=== PATIENT | female | born 1990 | race Hispanic/Latino ===

== ENCOUNTER 2017-02-04 08:40 | Inpatient (IN) | payer MEDICAID ==
[2017-02-04] MEDS ORDERED: MINERAL OIL PO PRN (10:57)
[2017-02-04] MEDS ORDERED: BRETHINE SUB-Q PRN (10:57)
[2017-02-04] MEDS ORDERED: XYLOCAINE 2% INFILTRATI ONE (10:57)
[2017-02-04] MEDS ORDERED: BRETHINE IVP PRN (10:57)
[2017-02-04] MEDS ORDERED: ePHEDrine SULFATE IV PRN ×2 (10:57→14:00)
[2017-02-04] MEDS ORDERED: LACTATED RINGERS 1,000 ML ONE (11:00)
[2017-02-04] MEDS ORDERED: PITOCin/NS 20 UNIT/1000ML DRIP 20 UNITS/1,000 ML BAG IV SCH (11:00)
[2017-02-04] MEDS ORDERED: SUBLIMAZE IV PRN (11:03)
--- NOTE | 2017-02-04 11:13 | History and Physical Report ---
History of Present Illness Date of examination: 02/04/17 Date of admission: 02/04/17 10:49 Chief complaint: I'm in labor History of present illness: Patient is a 26 year old who presents at 38.1 weeks in active labor with active cervical change. Her EDc is 02/17/2017. Patient has had regular care. She is GBS negative. Past History Past Medical History: asthma Past Surgical History: cholecystectomy, [employer]UD[employer]/uterine surgery (salpingectomy) [employer]ER History: trichomonas Social history: single - Obstetrical History Expected Date of Delivery: 02/17/17 Actual Gestation: 38 Week(s) 1 Day(s) : 9 Para: 4 Medications and Allergies Allergies Allergy/AdvReac Type Severity Reaction Status Date / Time No Known Allergies Allergy Verified 12/05/13 09:07 Home Medications Medication Instructions Recorded Confirmed Last Taken Type No Known Home Medications [No 02/04/17 02/04/17 Unknown History Reported Home Medications] Active Meds: Active Medications Ephedrine Sulfate (Ephedrine Sulfate) 10 mg IV Q2M PRN PRN Reason: Hypotension Stop: 02/04/17 11:02 Fentanyl (Sublimaze) 100 mcg IV Q2H PRN PRN Reason: Labor Pain Lactated Ringer's (Lactated Ringers) 1,000 mls @ 125 mls/hr IV DIRECT HARRY Oxytocin/Sodium Chloride (Pitocin/Ns 20 Unit/1000ml Drip) 20 units in 1,000 mls @ 125 mls/hr IV DIRECT HARRY Oxytocin/Sodium Chloride (Pitocin/Ns 30 Unit/500ml) 30 units in 500 mls @ 1 mls /hr IV TITR HARRY; 1 MILLIUNITS/MIN PRN Reason: Protocol Lidocaine (Xylocaine 2%) 20 ml INFILTRATI ONCE ONE Stop: 02/04/17 10:58 Mineral Oil (Mineral Oil) 30 ml PO QHS PRN PRN Reason: Constipation Terbutaline Sulfate (Brethine) 0.25 mg SUB-Q ONCE PRN PRN Reason: Hyperstimulation/Hypertonicity Stop: 02/04/17 10:58 Terbutaline Sulfate (Brethine) 0.25 mg IVP ONCE PRN PRN Reason: Hyperstimulation/Hypertonicity Stop: 02/04/17 10:58 Review of Systems All systems: negative Genitourinary: contractions - Vital Signs Vital signs: Vital Signs Pulse BP 91 H 122/80 02/04/17 08:47 02/04/17 08:47 Temp Pulse Resp BP Pulse Ox 97.7 F 82 16 122/80 99 02/04/17 08:59 02/04/17 09:23 02/04/17 08:59 02/04/17 08:59 02/04/17 09:23 - Physical Exam Breasts: Cardiovascular: Regular rate, Normal S1, Normal S2 Lungs: Positive: Clear to auscultation, Normal air movement Abdomen: Positive: normal appearance, soft, normal bowel sounds. Negative: distention, tenderness Vulva: both: normal Vagina: Positive: normal moisture. Negative: discharge Cervix: Negative: lesion, discharge Uterus: Positive: normal size, normal contour Adnexa: both: normal Anus/Rectum: Positive: normal perianal skin, heme negative. Negative: rectal mass, hemorrhoids Extremities: Deep Tendon Reflex Grade: Normal +2 - Obstetrical FHR: auscultation normal Cervical Dilatation: 4 Cervical Effacement Percentage: 80 Uterine Contraction Pattern: Regular Uterine Contraction Intensity: Moderate Results Result Diagrams: 02/04/17 11:25 All other labs normal. Assessment and Plan IUP at 38.1 weeks in active labor. Admit for management. patient may have epidural. AROM when able. Anticipate .
[2017-02-04 11:42] LABS: Hemoglobin 9.6 gm/dl (10.1-14.3); Mean Corpuscular HGB Conc 34 % (30-34); Mean Corpuscular Hemoglobin 30 pg (28-32); Mean Corpuscular Volume 87 fl (79-97); Platelet Count 170 K/mm3 (140-440); Red Cell Distribution Width 13.9 % (13.2-15.2); White Blood Count 6.4 K/mm3 (4.5-11.0)
[2017-02-04] MEDS: LACTATED RINGERS 1,000 ML IV SCH ×2 (12:27→13:39)
[2017-02-04] MEDS ORDERED: ePHEDrine SULFATE ONE (13:02)
[2017-02-04] MEDS ORDERED: fentaNYL-BUPIV 2 MCG/ML-0.125% 200 MCG/100 ML BAG EPIDURAL ONE (13:38)
--- NOTE | 2017-02-04 13:45 | Anesthesia Consultation ---
Anesthesia Consult and Med Hx Date of service: 02/04/17 - Airway Anesthetic Teeth Evaluation: Good ROM Head & Neck: Adequate Mental/Hyoid Distance: Adequate Mallampati Class: Class II Intubation Access Assessment: Probably Good - Pre-Operative Health Status ASA Pre-Surgery Classification: ASA2 Proposed Anesthetic Plan: Epidural, Spinal - Pulmonary Hx Smoking: Yes Hx Asthma: No COPD: No Hx Pneumonia: No - Cardiovascular System Hx Hypertension: No - Central Nervous System Hx Seizures: No Hx Psychiatric Problems: Yes (bipolar) - Endocrine Hx Renal Disease: Yes (possible Kidney stones) Hx End Stage Renal Disease: No Hx Hypothyroidism: No Hx Hyperthyroidism: No - Hematic Hx Anemia: No Hx Sickle Cell Disease: No - Other Systems Hx Alcohol Use: No
[2017-02-04] MEDS ORDERED: NARCAN 2 MG/2 ML IV PRN (14:00)
[2017-02-04] MEDS ORDERED: fentaNYL-BUPIV 2 MCG/ML-0.125% 200 MCG/100 ML BAG EPIDURAL SCH (14:00)
[2017-02-04] MEDS: PITOCin/NS 30 UNIT/500ML 30 UNITS/500 ML BAG IV SCH ×2 (14:13→14:47)
[2017-02-04] MEDS ORDERED: XYLOCAINE MPF 2% ONE (16:45)
--- NOTE | 2017-02-04 17:29 | Procedure Note ---
OB Delivery Note - Delivery Date of Delivery: 02/04/17 Surgeon: NELSY MINA Estimated blood loss: 200cc - Vaginal Delivery presentation: vertex Delivery position: OA Delivery augmentation: rupture of membranes Delivery monitor: external FHT, external uterine Route of delivery: Delivery placenta: spontaneous Delivery cord: 3 umbilical vessels Episiotomy: none Delivery laceration: none Anesthesia: epidural Delivery comments: Viable male delivered over intact perineum with Apgars 8,9. Infant placed on maternal abdomen for skin to skin. Weight 6 pounds 12 ounces. Cord clamped and cut when finished pulsating. Placenta delivered spontaneously and intact with 3vc. Patient tolerated procedure well. No lacerations. Patient tolerated procedure well. - A at 1 minute: 8 at 5 minutes: 9 Gender: Male (6 ounds 12 iounces)
[2017-02-04] MEDS ORDERED: LANSINOH TP PRN (18:55)
[2017-02-04] MEDS ORDERED: TYLENOL PO PRN (18:55)
[2017-02-04] MEDS ORDERED: TUCKS PAD TP PRN (18:55)
[2017-02-04] MEDS ORDERED: SODIUM CHLORIDE FLUSH SYRINGE 10 ML IV NR (18:55)
[2017-02-04] MEDS ORDERED: BENADRYL PO PRN (18:55)
[2017-02-04] MEDS ORDERED: PHENERGAN PO PRN (18:55)
[2017-02-04] MEDS ORDERED: PHENERGAN PR PRN (18:55)
[2017-02-04] MEDS ORDERED: ZOFRAN IV PRN (18:55)
[2017-02-04] MEDS ORDERED: DERMOPLAST TP PRN (18:55)
[2017-02-04] MEDS ORDERED: DULCOLAX PR PRN (18:55)
[2017-02-04] MEDS ORDERED: MILK OF MAGNESIA PO PRN (18:55)
[2017-02-04] MEDS: COLACE PO SCH (22:07)
[2017-02-04] MEDS: MOTRIN PO SCH (22:49)
[2017-02-05] MEDS: NORCO 5/325 PO PRN ×4 (01:04→20:37)
[2017-02-05] MEDS: MOTRIN PO SCH ×4 (06:03→18:27)
[2017-02-05 06:19] LABS: Hematocrit 29.3 % (30.3-42.9); Hemoglobin 9.9 gm/dl (10.1-14.3)
[2017-02-05] MEDS ORDERED: PRENATAL VITAMIN PO SCH (10:00)
--- NOTE | 2017-02-05 12:35 | Progress Note ---
Subjective Date of service: 02/05/17 Interval history: 1st day after normal vaginal delivery Patient is in the bed, comfortable. Pain is well controlled with pain meds. Ambulated well. No residual neurological deficit. No anesthesia complications Objective - Constitutional Vitals: Vital Signs - 12hr 02/05/17 02/05/17 02/05/17 01:05 05:00 08:35 Temperature 97.5 F L 99.1 F 97.9 F Pulse Rate [ 76 72 71 Right Radial] Respiratory 20 18 20 Rate Blood Pressure 147/83 140/97 123/90 [Right Arm] 02/05/17 02/05/17 11:53 11:54 Temperature Pulse Rate [ Right Radial] Respiratory 18 18 Rate Blood Pressure [Right Arm] - Labs CBC & Chem 7: 02/05/17 05:39 Labs: Abnormal lab results 02/05/17 Range/Units 05:39 Hgb 9.9 L (10.1-14.3) gm/dl Hct 29.3 L (30.3-42.9) %
--- NOTE | 2017-02-05 18:54 | Progress Note ---
Assessment and Plan PPD 1 s/p . Doing well. Patient planning to be discharged on tomorrow morning. Subjective - Subjective Date of service: 02/05/17 Interval history: Patient is a 26 year old who presents at 38.1 weeks in active labor with active cervical change. Her EDc is 02/17/2017. Patient has had regular care. She is GBS negative. Patient reports: appetite normal, voiding normally, pain well controlled, ambulating normally [place]: doing well Objective - Vital Signs Latest vital signs: Vital Signs Temp Pulse Resp BP 02/05/17 18:23 98.2 F 77 20 118/78 02/05/17 11:54 18 02/05/17 11:53 18 02/05/17 08:35 97.9 F 71 20 123/90 02/05/17 05:00 99.1 F 72 18 140/97 02/05/17 01:05 97.5 F L 76 20 147/83 Intake and Output 02/05/17 02/05/17 02/05/17 06:59 14:59 22:59 Intake Total 240 960 240 Output Total 1000 1 Balance 240 -40 239 Intake: Oral 960 240 Intake, Free Water 240 Output: Urine 1000 1 Void 1000 1 Other: Total, Intake Amount 360 240 Total, Output Amount 600 1 # Voids Void 2 1 - Exam Cardiovascular: Present: Regular rate, Normal S1, Normal S2 Lungs: Present: Clear to auscultation, Normal air movement Abdomen: Present: normal appearance, soft, normal bowel sounds Vulva: both: normal Uterus: Present: normal, firm, fundal height below umbilicus Extremities: Present: normal Deep Tendon Reflex Grade: Normal +2 - Labs Labs: Abnormal lab results 02/05/17 Range/Units 05:39 Hgb 9.9 L (10.1-14.3) gm/dl Hct 29.3 L (30.3-42.9) %
--- NOTE | 2017-02-05 18:57 | Discharge Summary ---
Providers - Providers Date of Admission: 02/04/17 10:49 Date of discharge: 02/06/17 Attending physician: NELSY MINA Primary care physician: NELSY MINA Hospitalization Reason for admission: active labor Delivery: Laceration: none Discharge diagnosis: IUP at term delivered [place] baby: male Hospital course: unremarkable Condition at discharge: Good Disposition: DISCHARGED TO HOME OR SELFCARE Plan - Discharge Medications Prescriptions: Ibuprofen [Motrin 600 MG tab] 600 mg PO Q6H #30 tablet Vit-Fe Fumar-FA [ Vitamin] 1 each PO QDAY #30 tablet - Provider Discharge Summary Activity: routine, no sex for 6 weeks, no heavy lifting 4 weeks, no strenuous exercise Diet: routine Instructions: routine Additional instructions: [] Smoking cessation referral if applicable(refer to patient education folder for contact #) [] Refer to [facility] Booklet Call your doctor immediately for: * Fever > 100.5 * Heavy vaginal bleeding ( >1 pad per hour) * Severe persistent headache * Shortness of breath * Reddened, hot, painful area to leg or breast * Drainage or odor from incision. * Keep incision clean and dry at all times and follow doctor's instructions regarding bathing/showering - Follow up plan Follow up: NELSY MINA MD [Primary Care Provider] - 7 Days
[2017-02-05] MEDS: COLACE PO SCH (21:07)
[2017-02-06] MEDS: MOTRIN PO SCH ×2 (02:13→06:02)
[2017-02-06] MEDS: NORCO 5/325 PO PRN (06:01)
[2017-02-06 10:01] VITALS: BP 124/84
[2017-02-06] MEDS: COLACE PO SCH (10:36)
== END 2017-02-06 10:30 | disposition home or self-care (01) | DRG 775 ==
LOC: TRG 08:40 → LD 10:49 → OB 18:37
PROVIDERS: ADMIT Obstetrics & Gynecology; ATTEND Obstetrics & Gynecology
PROC: 10907ZC Drainage of Amniotic Fluid, Therapeutic from Products of Conception, Via Natural or Artificial Opening (ICD-10-PCS; principal; 2017-02-04)
PROC: 10E0XZZ Delivery of Products of Conception, External Approach (ICD-10-PCS; principal; 2017-02-04)
PROC: 3E0S3CZ (ICD-10-PCS; principal; 2017-02-04)
PROC: 00HU33Z Insertion of Infusion Device into Spinal Canal, Percutaneous Approach (ICD-10-PCS; principal; 2017-02-04)
DX: O99.52 Diseases of the respiratory system complicating childbirth (principal); J45.909 Unspecified asthma, uncomplicated; Z3A.38 38 weeks gestation of pregnancy; Z37.0 Single live birth; Z90.49 Acquired absence of other specified parts of digestive tract; O99.340 Other mental disorders complicating pregnancy, unspecified trimester; F31.9 Bipolar disorder, unspecified
CPT/HCPCS: 36415; 85014; 85018; 85027; 86850; 86900; 86901; J2590; J3010; J7120

== ENCOUNTER 2017-03-13 09:29 | Day surgery (SDC) | payer MEDICAID ==
[~2017-03-13 09:29] MED LIST: DIPRIVAN 10 MG/ML IV ONE; MARCAINE 0.25% INFILTRATI ONE; NACL 0.9% 1000 ML 1,000 ML IV SCH; NACL 0.9% IR ONE; PEPCID IV NR; VERSED IV NR; ZOFRAN IV PRN
--- NOTE | 2017-03-13 09:58 | Short Stay Summary ---
Short Stay Documentation Date of service: 03/13/17 Narrative H&P: Patient is a 26 year old who presents for elective sterilization. She is 6 weeks post spontaneous vag delivery. She has no significant medical problems - History H&P: obtained from office Past Medical History: No medical history Past Surgical History: No surgical history Social history: single - Allergies and Medications Current Medications: Allergies No Known Allergies Allergy (Verified 03/06/17 13:05) Home Medications Medication Instructions Recorded Confirmed Last Taken Type Ibuprofen [Motrin 600 MG tab] 600 mg PO Q6H #30 tablet 02/05/17 03/06/17 Unknown Rx Vit-Fe Fumar-FA [ 1 each PO QDAY #30 tablet 02/05/17 03/06/17 Unknown Rx Vitamin] Active Medications Famotidine (Pepcid) 20 mg IV PREOP NR Hydromorphone HCl (Dilaudid) 0.5 mg IV Q10MIN PRN PRN Reason: Pain , Severe (7-10) Stop: 03/16/17 07:36 Sodium Chloride (Nacl 0.9% 1000 Ml) 1,000 mls @ 75 mls/hr IV DIRECT HARRY Midazolam HCl (Versed) 2 mg IV PREOP NR Stop: 03/13/17 23:59 Ondansetron HCl (Zofran) 4 mg IV ONCE PRN PRN Reason: Nausea And Vomiting Stop: 03/13/17 07:36 - Physical exam General appearance: no acute distress Integumentary: no rash Lungs: Clear to auscultation, Normal air movement Heart: Regular rate, Normal S1, Normal S2 Gastrointestinal: normal Female Genitourinary: normal Extremities: No edema - Brief post op/procedure progress note Date of procedure: 03/13/17 Pre-op diagnosis: Elective sterilization Post-op diagnosis: same Procedure: Laparoscopic unilateral (right) salpingectomy Anesthesia: GETA Findings: normal uterus, partially removed left fallopian tube Surgeon: NELSY MINA Estimated blood loss: minimal Pathology: list (right tube) Specimen disposition: to lab Condition: stable - Hospital course Hospital course: unremarkable - Disposition Condition at discharge: Good Disposition: DC-01 TO HOME OR SELFCARE Short Stay Discharge Plan Activity: advance as tolerated Weight Bearing Status: Weight Bear as Tolerated Diet: regular Wound: open to air Follow up with: NELSY MINA MD [Primary Care Provider] - 14 Days Prescriptions: HYDROcodone/APAP 5-325 [[place] 5/325] 1 each PO Q6HR PRN #20 tablet PRN Reason: Pain Ibuprofen [Motrin] 800 mg PO Q8HR PRN #40 tablet PRN Reason: Pain
[2017-03-13] MEDS ORDERED: ANCEF/STERILE WATER 2 GM/20 ML 2 GM/20 ML SYRINGE IV NR (10:00)
--- NOTE | 2017-03-13 10:01 | Anesthesia Day of Surgery ---
Anesthesia Day of Surgery - Day of Surgery Patient Examined: Yes Patient H&P Reviewed: Yes Patient is NPO: Yes
--- NOTE | 2017-03-13 10:01 | Anesthesia Consultation ---
Anesthesia Consult and Med Hx Date of service: 03/13/17 - Airway Anesthetic Teeth Evaluation: Good ROM Head & Neck: Adequate Mental/Hyoid Distance: Adequate Mallampati Class: Class I Intubation Access Assessment: Good - Pulmonary Exam CTA: Yes - Cardiac Exam Cardiac Exam: RRR - Pre-Operative Health Status ASA Pre-Surgery Classification: ASA2 Proposed Anesthetic Plan: General - Pulmonary Hx Smoking: Yes (former, stopped on 2015) Hx Asthma: No COPD: No Hx Pneumonia: No - Cardiovascular System Hx Hypertension: No - Central Nervous System Hx Seizures: No Hx Psychiatric Problems: Yes (bipolar) - Endocrine Hx Renal Disease: Yes (possible Kidney stones) Hx End Stage Renal Disease: No Hx Hypothyroidism: No Hx Hyperthyroidism: No - Hematic Hx Anemia: No Hx Sickle Cell Disease: No - Other Systems Hx Alcohol Use: Yes (occas) Hx Cancer: No - Additional Comments Anesthesia Medical History Comments: No problem with previous anesthesias.
[2017-03-13] MEDS ORDERED: ZEMURON IV ONE (10:59)
[2017-03-13] MEDS ORDERED: XYLOCAINE MPF 2% ONE (10:59)
[2017-03-13] MEDS ORDERED: DECADRON ONE (11:00)
[2017-03-13] MEDS ORDERED: ZOFRAN ONE (11:09)
[2017-03-13] MEDS ORDERED: TORADOL ONE (11:09)
[2017-03-13] MEDS ORDERED: ROBINUL ONE ×2 (11:37)
[2017-03-13] MEDS ORDERED: NEOSTIGMINE ONE (11:37)
[2017-03-13] MEDS: DILAUDID IV PRN ×2 (12:20→12:41)
--- NOTE | 2017-03-13 12:35 | Post Anesthesia Evaluation ---
- Post Anesthesia Evaluation Patient Participated: Yes Airway Patent: Yes Stable Respiratory Function: Yes Nausea/Vomiting: No Temp > 96.8F: Yes Pain Manageable: Yes Adequeate Hydration: Yes Anesthesia Complications: No Block Receding Appropriately: Not Applicable Patient on Ventilator: No
[2017-03-13 13:38] VITALS: BP 113/79
--- NOTE | 2017-03-13 18:08 | Operative Report ---
PREOPERATIVE DIAGNOSIS: Undesired fertility. POSTOPERATIVE DIAGNOSES: Undesired fertility, perineal adhesions. PROCEDURES: Unilateral salpingectomy with bilateral tubal ligation, lysis of adhesions. SURGEON: Lisa Carter MD. ANESTHESIA: General. ESTIMATED BLOOD LOSS: Minimal. COMPLICATIONS: None. SPECIMENS: Right fallopian tube. URINE OUTPUT: 100 mL clear at the beginning of the procedure. IV FLUIDS: 800 mL. PROCEDURE: The patient was taken to the OR with IV running in place. She was identified as herself. She was given general anesthesia without difficulty. She was then placed in dorsal lithotomy position and prepped and draped in normal sterile fashion. Attention was turned to the patient's vagina. The bladder was drained 100 mL of clear yellow urine. The speculum was placed in the vagina to visualize the cervix. An acorn cannula was then placed along the speculum was removed. Surgeon's gloves were changed and attention was turned to the patient's abdomen. A 5 mm incision was made in the umbilicus. Through this incision, a 5-mm trocar was placed. The trocar was placed through this incision and the laparoscope confirmed intra-abdominal placement. The abdomen was insufflated with CO2 gas up to approximately 15 mmHg. Initial survey of the abdomen revealed omental adhesions to the anterior abdominal wall and there were just a mass in the midline. Otherwise, normal uterus and tubes otherwise appeared normal. The tube on the right appeared to be completely normal. The tube on the left appeared to have been occluded at some point, but there was a portion of tube that appeared to be remaining. Under direct visualization, a second incision was made in the left lower quadrant. Under direct visualization, a second trocar was placed through this incision. The port was used to remove bowel out of the field to view. Using the LigaSure device, the string of omental adhesions to the anterior abdominal wall was taken down using cautery. Once this part was completed, attention was turned to the right tube. The tube was grasped, transected and cauterized at the area of most proximal to the uterus. The broad ligament was traversed and the tube was completely detached, the broad ligament down to the fimbriated end. She was then delivered out of the left lower quadrant port. Attention to the left tube revealed what appeared to be a tubal remnant that was pink although rest of the tube appeared to be discolored and mottled. This was cauterized at the pink area just to make sure that the tube will no longer function. Once this was done, there was excellent hemostasis noted. All instruments were removed from the patient's abdomen. The abdomen was deflated. The skin was closed with 4-0 Monocryl. The sponge, lap, needle, and instrument counts were correct x 2. JOB# [id number] JAZMIN/PEDRO
== END 2017-03-13 13:35 | disposition home or self-care (01) ==
LOC: OR 09:29
PROVIDERS: ATTEND Obstetrics & Gynecology
DX: Z30.2 Encounter for sterilization (principal); N73.6 Female pelvic peritoneal adhesions (postinfective); F31.9 Bipolar disorder, unspecified; Z72.89 Other problems related to lifestyle; Z87.891 Personal history of nicotine dependence
CPT/HCPCS: 36415; 58661; 58670; 84703; 88302; J0690; J1100; J1170; J1885; J2250; J2405; J2704; J2710; J7030